=== PATIENT | male | born 1980 | race Caucasian/White ===

== ENCOUNTER 2022-01-04 15:12 | Emergency (ER) | payer OTHER ==
[2022-01-04 15:42] LABS: HEMOGLOBIN 14.4 gm/dl (14.0-17.5); RED BLOOD COUNT 5.02 M/UL (4.20-5.50); WHITE BLOOD COUNT 9.5 K/UL (4.5-11.0)
[2022-01-04 16:13] LABS: BUN/CREATININE RATIO 12 (0-10)
== END 2022-01-04 20:02 | disposition home or self-care (01) ==
LOC: ER1 15:12
PROVIDERS: Emergency Medicine
DX: R07.89 Other chest pain (principal); I11.9 Hypertensive heart disease without heart failure
CPT/HCPCS: 71045; 71046; 80053; 82550; 82553; 84484; 85025; 93005; 99285